=== PATIENT | male | born 1940 | race Caucasian/White ===

== ENCOUNTER → 2019-06-26 | Day surgery (SDC) | payer MEDICARE ==
[2019-06-23 10:07] LABS: BASOPHILS % 0.5 % (0.0-1.0); EOSINOPHILS # (AUTO) 0.1 (0.0-0.4); EOSINOPHILS % 1.3 % (0.0-6.0); HEMATOCRIT 43.1 % (38.2-49.6); HEMOGLOBIN 14.1 g/dL (14.0-18.0); LYMPHOCYTES # (AUTO) 1.7 (1.0-3.2); LYMPHOCYTES % 22.9 % (18.0-39.1); MEAN CORPUSCULAR HEMOGLOBIN 30.3 pg (28-32); MEAN CORPUSCULAR HGB CONC 32.7 g/dL (31-35); MEAN CORPUSCULAR VOLUME 92.5 fL (81-99); MONOCYTES # (AUTO) 0.6 (0.2-0.8); MONOCYTES % 7.9 % (4.4-11.3); NEUTROPHILS % 67.1 % (38.7-80.0); PLATELET COUNT 244 x10e3/uL (140-360); RED BLOOD COUNT 4.66 x10e6/uL (4.3-5.7); RED CELL DISTRIBUTION WIDTH 12.9 % (11.7-14.4)
[~2019-06-26] MED LIST: ACETAMINOPHEN 1000 MG/100 ML IV ONE; AMLODIPINE BESYL5 MG PO; ASPIR 8181 MG PO; ATORVASTATIN CA20 MG PO; CEFAZOLIN SOD 1 GM/NS 50ML 50 ML IV ONE; CO Q-10 100 MG1 EACH PO; DEXAMETHASONE SOD PHOS INJ 4 MG/ML VIAL ONE; FENTANYL CITRATE/PF 100MCG/2 ML INJ ONE; FISH OIL 1,4001 EACH PO; GLYCOPYRROLATE INJ 0.2 MG/ML VIAL ONE; LIDOCAINE 1% W/EPINEPHRINE 20 ML VIAL ONE; LIDOCAINE HCL 2% LOCAL INJ 5 ML SDV VIAL INJ ONE; LOSARTAN POTAS100 MG PO; MELOXICAM7.5 MG PO; MULTI-VITAMIN1 EACH PO; MUPIROCIN 2% OINT 22 GM TUBE ONE; NEOSTIGMINE 1 MG/ML 10ML VIAL ONE; NORCO 5-325 TA1 EACH PO; ONDANSETRON HCL INJ 2MG/ML 2ML 2 MG/ML VIAL ONE; PLAVIX75 MG PO; POVIDONE IODINE 5% (OPTH) 30 ML BTL ONE; PROPOFOL IV EMULSION 10 MG/ML 20 ML VIAL ONE; ROCURONIUM BROMIDE 10 MG/ML 5ML VIAL ONE; SEVOFLURANE INHAL SOLN 250 ML PEN BTL ONE; TRAMADOL HCL 50 MG TAB ONE
--- OUTSIDE RECORDS SUMMARY | 2019-06-26 06:25 | XMS REPORT | Encounter Summary ---
Author Organization Unknown Address [address] [place] [id number] Phone [phone] Care Team Providers Care Endoscopy Nurse Name Role Phone Dr. Armin Padron Zamora 3 [phone] Reason for Visit other - see typed reason Instructions 1. Pre-surgery evaluation CBC w/ auto diff CMP, serum or plasma XR, chest, 2 view 2. Body mass index 25-29 - overweight learning about healthy weight 3. Chronic obstructive lung disease spirometry testing 4. Amputated toe Discussion Note: None recorded. Plan of Care Reminders Provider Appointments None recorded. Lab CBC W/ Auto Diff 04/14/2019 [facility] Laboratory CMP, Serum or Plasma 04/14/2019 [facility] Laboratory Referral None recorded. Procedures None recorded. Surgeries None recorded. Imaging XR, Chest, 2 View 04/14/2019 [facility] [place] Medications Name Start Date amlodipine 5 mg tablet TAKE ONE TABLET BY MOUTH DAILY atorvastatin 40 mg tablet TAKE ONE TABLET BY MOUTH DAILY clopidogrel 75 mg tablet Take 1 tablet every day by oral route for 90 days. losartan 100 mg tablet TAKE ONE TABLET BY MOUTH DAILY meloxicam 15 mg tablet TAKE ONE TABLET BY MOUTH DAILY Medications Administered None recorded. Vitals Height Weight BMI Blood Pressure 5 ft 8 in 192.4 lbs 29.3 kg/m2 (1) 81/59 mm[Hg] (2) 120/58 mm[Hg] Results Lab Results None recorded. Allergies Code Code System Name Reaction Severity Status Onset NKDA Problems Name Status Onset Date Source Diverticulitis Active 02/21/2015 Osteoarthritis of Hip Active 02/21/2015 Hyperlipidemia Active 02/02/2016 Carotid Artery Stenosis Active 12/04/2016 Gastroesophageal Reflux Disease without Esophagitis Active 12/04/2016 Chronic Kidney Disease Active 12/04/2016 Pure Hyperglyceridemia Active 12/07/2016 Pressure Ulcer Active 08/24/2017 Essential Hypertension Active 11/12/2017 Atherosclerosis of Arteries of the Extremities Active 11/12/2017 Peripheral Vascular Disease Active 11/12/2017 Mixed Hyperlipidemia Active 08/19/2018 Atherosclerosis of Aorta Active 08/19/2018 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 Chronic Obstructive Lung Disease Active 08/19/2018 Absence of Toe Active 08/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 Amputated Toe Active 04/14/2019 Procedures Date Name Performed by 04/23/2016 Colonoscopy Information not available Placement of Stent Information not available Shoulder Joint Surgery Information not available Procedure on Foot Information not available Back Surgery Information not available Procedure on Gallbladder Information not available Appendectomy Information not available 04/14/2019 XR, Chest, 2 [facility] [place] [address] [place] [address] (Work Place) Vaccine List Vaccine Type influenza, high-dose, quadrivalent 01/15/2018 02/14/2019 pneumococcal polysaccharide PPV23 04/23/2013 Social History Tobacco Smoking Status Former Smoker (2 PPD) Past Encounters 04/14/2019 Pre-surgery Evaluation; Body Mass Index 25-29 - Overweight; Chronic Obstructive Lung Disease; Amputated Toe Armin Zamora MD: [address], [place] [address], Ph. History of Present Illness Note:Pt going to have low back spine surgery. he is going to have a spine stimulator placed. he needs clearance.<div>he recently had rt facial basal; cell skin cancer surgery at [facility]. he did preop there in the last 10 days with labs, EKG, CXR and was cleared </div> Review of Systems Comprehensive General Adult ROS Reported By: Patient Constitutional: Constitutional: no fever Cardiovascular: Cardiovascular: no chest pain, no palpitations Respiratory: Respiratory: no cough Gastrointestinal: Gastrointestinal: no abdominal pain Neurologic: Neurologic: no loss of consciousness Physical Exam General Adult Exam (male) Reported By: Patient Constitutional: General Appearance: healthy-appearing, well-nourished. Level of Distress: NAD. Ambulation: ambulating normally Psychiatric: Insight: good judgement. Mental Status: active and alert Head: Head: normocephalic, atraumatic Eyes: Pupils: PERRLA. EOM: EOMI ENMT: Ears: no lesions on external ear, TMs clear. Nose: no lesions on external nose. Lips, Teeth, and Gums: no mouth or lip ulcers. Oropharynx: moist mucous membranes Neck: Neck: supple. Lymph Nodes: no cervical LAD. Thyroid: no enlargement Lungs: Respiratory effort: no dyspnea. Auscultation: breath sounds normal, good air movement Cardiovascular: Heart Auscultation: RRR, normal S1, normal S2. Neck vessels: no carotid bruits. Pulses including femoral / pedal: normal throughout Abdomen: Bowel Sounds: normal. Inspection and Palpation: soft, non-distended, no tenderness. Hernia: none palpable Skin: Inspection and palpation: no rash, no lesions Back: Thoracolumbar Appearance: normal curvature
[2019-06-26 11:45] VITALS: BP 114/62
--- NOTE | 2019-06-27 13:38 | Operative Report ---
DATE OF PROCEDURE: 06/26/2019 SURGEON: Drew Cota MD PREOPERATIVE DIAGNOSIS: Cicatricial ectropion, right lower eyelid. POSTOPERATIVE DIAGNOSIS: Cicatricial ectropion, right lower eyelid. PROCEDURE: Release of Cicatricial ectropion, right lower eyelid and full-thickness skin grafting. ANESTHESIA: General. 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 This had been excised and repaired with a full-thickness skin graft. 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 The risks, benefits, and alternative treatment were discussed with the patient. He is prepared to undergo the procedure as outlined. DESCRIPTION OF PROCEDURE: The patient was marked preoperatively in the holding area. He was brought to the operating theater and after the induction of adequate general anesthesia, he was prepped and draped in a supine position and a time-out was performed. The procedure was begun first by placing a corneal protector with Lacri-Lube. After this was performed, the subciliary incision was marked out. This represents the superior border of the previously placed full-thickness skin graft. The area was then infiltrated with 1% Xylocaine with epinephrine approximately 1 mL was used. The incision was then made through the skin and subcutaneous tissue. Dense cicatrix was encountered. This was gently teased apart and down to the preaponeurosis layer when the right lower eyelid was then fully mobile and able to be moved without difficulty. The scar tissue was then excised using the electrocautery. The dimensions of the defect were then taken and then a template of the full-thickness graft was marked out in the right preauricular area. The right preauricular area was infiltrated with 1% Xylocaine with epinephrine. The graft was harvested by incising through the skin and subcutaneous tissue sharply. Bleeding was controlled using electrocautery. The graft was then removed and the donor site was then closed with 5-0 nylon in an interrupted horizontal mattress fashion. The graft was then defatted down to the deep dermal layer. It was then placed onto the defect in the right lower eyelid and it was secured in place using 5-0 chromic sutures. At this point, a lateral tarsorrhaphy was performed by using 6-0 Prolene in a pledget suture and coapting the lateral portions of the right upper and lower eyelids, and tied over the pledget. This was to put tension on the right lower eyelid and allow the ectropion to resolve. At this point, Steri-Strips were applied to the skin graft and the patient was then returned to recovery room in satisfactory condition. He was discharged with a postoperative instruction sheet as well as a followup appointment. MD WHITNEY Barton/NATHAN /[id number]
== END | disposition home or self-care (01) ==
LOC: OR 06:23
PROVIDERS: ATTEND Plastic Surgery
DX: H02.112 Cicatricial ectropion of right lower eyelid (principal); G47.30 Sleep apnea, unspecified; I10 Essential (primary) hypertension; R06.02 Shortness of breath; K21.9 Gastro-esophageal reflux disease without esophagitis; Z01.812 Encounter for preprocedural laboratory examination; Z79.02 Long term (current) use of antithrombotics/antiplatelets; Z79.82 Long term (current) use of aspirin; Z87.891 Personal history of nicotine dependence
CPT/HCPCS: 15260; 36415; 85025; J0131; J0690; J1100; J2001; J2405; J2704; J2710; J3010